=== PATIENT | female | born 1990 | race Hispanic/Latino ===

== ENCOUNTER 2023-08-21 11:13 | Emergency (ER) | payer OTHER ==
[2023-08-21] MEDS ORDERED: LIDOCAINE 1% 20 ML MDV ONE (11:39)
--- NOTE | 2023-08-21 12:42 | EDPHYS ---
Physician Documentation [facility] Name: Pattie Ahn Age: 32 yrs Sex: Female : 1990 Arrival Date: 08/21/2023 Time: 11:13 Bed 11 Private MD: ED Physician Guanakito Henson HPI: 08/20 12:38 This 32 yrs old Female presents to ER via Ambulatory with complaints of Finger rn laceration. 12:38 The patient has a laceration related to: cooking, occurred at home, and there are no rn complicating factors. Onset: The symptoms/episode began/occurred just prior to arrival. The patient has not experienced similar symptoms in the past. Patient reports cutting an onion and slipped and cut her finger accidentally with a knife. Minimal bleeding.. 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 - Infectious Disease History:: Denies. - Social history:: Smoking status: Patient denies any tobacco usage or history of. - Family history:: not pertinent. - Hospitalizations: : No recent hospitalization is reported. ROS: 12:38 MS/Extremity: Positive for laceration to the left fifth digit rn Exam: 12:38 MS/ Extremity: 3 cm superficial laceration to the tip of the left fifth finger, on pad rn of finger and extends to nail but does not involve the nail. No foreign body. Minimal venous bleeding noted. Vital Signs: 11:35 BP 135 / 102; Pulse 80; Resp 18 S; Temp 97.5(TE); Pulse Ox 96% on R/A; Weight 65.77 kg as6 (R); Height 5 ft. 1 in. (R); Pain 8/10; 12:56 BP 114 / 76; Pulse 68; Resp 16; Temp 97.8(TE); Pulse Ox 99% on R/A; Pain 0/10; tl4 11:35 Body Mass Index 27.40 (65.77 kg, 154.94 cm) as6 11:35 Pain Scale: Adult as6 12:56 Pain Scale: Adult tl4 Laceration: 12:38 Wound Repair of 3cm ( 1.2in ) subcutaneous laceration to Palmar aspect of the distal rn phalanx of the left little finger. Distal neuro/vascular/tendon intact. Anesthesia: Regional Block with 3 mls of 1% lidocaine. Wound prep: Extensive cleansing by me, Wound irrigation by me, Wound explored extensively. Skin closed with 6 4-0 Prolene using interrupted sutures and sterile technique. Dressed with 4x4's. Patient tolerated well. MDM: 11:21 Patient medically screened. rn 12:40 Differential diagnosis: superficial laceration. Data reviewed: vital signs, nurses rn notes, and as a result, I will discharge patient. Counseling: I had a detailed discussion with the patient and/or guardian regarding the historical points, exam findings, and any diagnostic results supporting the discharge/admit diagnosis, the need for outpatient follow up, to return to the emergency department if symptoms worsen or persist or if there are any questions or concerns that arise at home. Special discussion: I discussed with the patient/guardian in detail that at this point there is no indication for admission to the hospital. It is understood, however, that if the symptoms persist or worsen the patient needs to return immediately for re-evaluation. 08/20 11:39 Order name: Wound Care; Complete Time: 11:40 rn 08/20 11:39 Order name: Suture Tray at Bedside; Complete Time: 11:46 rn 08/20 11:39 Order name: Dressing - Wound; Complete Time: 11:40 rn 08/20 11:39 Order name: Gloves, Sterile; Complete Time: 11:46 rn 08/20 11:39 Order name: Prolene, Sutures; Complete Time: 11:46 rn 08/20 12:40 Order name: Splint - Finger; Complete Time: 12:56 rn Administered Medications: 12:23 Drug: Lidocaine Infiltration (1 %) 1 vials 20 ml Infiltration once; to bedside {Note: tl4 Administered by Dr Henson.} Volume: 20 ml; Route: Infiltration; Site: affected area; Disposition Summary: 08/21/23 12:41 Discharge Ordered Notes: Location: Home rn Problem: new rn Symptoms: have improved rn Condition: Stable rn Diagnosis - Laceration without foreign body of left little finger without damage to nail rn Followup: rn - With: Emergency Department - When: 14 days - Reason: Staple/Suture removal Discharge Instructions: - Discharge Summary Sheet rn - Laceration Care, Adult rn Forms: - Medication Reconciliation Form rn - Antibiotic furnace clerk - Prescription Opioid Use rn - Patient Portal Instructions rn - Leadership Thank You Letter rn Signatures: Guanakito Henson MD MD rn Slawson, Ashby RN RN as6 Patricio Valenzuela RN RN tl4
--- NOTE | 2023-08-21 12:42 | ER ---
Nurse's Notes [facility] Name: Pattie Ahn Age: 32 yrs Sex: Female : 1990 Arrival Date: 08/21/2023 Time: 11:13 Bed 11 Private MD: Diagnosis: Laceration without foreign body of left little finger without damage to nail Presentation: 08/20 11:35 Chief complaint: Patient states: pt cut her left pinky finger while cutting onions. as6 Coronavirus screen: At this time, the client does not indicate any symptoms associated with coronavirus-19. Ebola Screen: No symptoms or risks identified at this time. Initial Sepsis Screen: Does the patient meet any 2 criteria? No. Patient's initial sepsis screen is negative. Does the patient have a suspected source of infection? No. Patient's initial sepsis screen is negative. Risk Assessment: Do you want to hurt yourself or someone else? Patient reports no desire to harm self or others. Onset of symptoms was August 21, 2023. 11:35 Method Of Arrival: Ambulatory as6 11:35 Acuity: HAYDEE 4 as6 Triage Assessment: 12:00 General: Appears in no apparent distress. Behavior is cooperative, anxious. Pain: as6 Complains of pain in left hand. Injury Description: Laceration sustained to palmar aspect of middle phalanx of left little finger is clean, 0.5 to 2.5 cm long. 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 - Infectious Disease History:: Denies. - Social history:: Smoking status: Patient denies any tobacco usage or history of. - Family history:: not pertinent. - Hospitalizations: : No recent hospitalization is reported. Screenin:01 [facility] ED Fall Risk Assessment (Adult) History of falling in the last 3 months, as6 including since admission No falls in past 3 months (0 pts) Confusion or Disorientation No (0 pts) Intoxicated or Sedated No (0 pts) Impaired Gait No (0 pts) Mobility Assist Device Used No (0 pt) Altered Elimination No (0 pt) Score/Fall Risk Level 0 - 2 = Low Risk Oriented to surroundings, Maintained a safe environment, Educated pt \T\ family on fall prevention, incl call for assistance when getting out of bed, Assessed \T\ reinforced patient's understanding of fall precautions. Abuse screen: Denies threats or abuse. Denies injuries from another. Nutritional screening: No deficits noted. Tuberculosis screening: No symptoms or risk factors identified. Assessment: 12:24 General: Appears in no apparent distress. Behavior is calm, cooperative. Pain: tl4 Complains of pain in left hand. Neuro: Level of Consciousness is awake, alert, obeys commands, Oriented to person, place, time, situation, Moves all extremities. Full function Gait is steady, Speech is normal. Cardiovascular: Capillary refill < 3 seconds Patient's skin is warm and dry. Respiratory: Airway is patent Respiratory effort is even, unlabored, Respiratory pattern is regular, symmetrical, Breath sounds are clear bilaterally. GI: No signs and/or symptoms were reported involving the gastrointestinal system. : No signs and/or symptoms were reported regarding the genitourinary system. EENT: No signs and/or symptoms were reported regarding the EENT system. Derm: No signs and/or symptoms reported regarding the dermatologic system. Musculoskeletal: Circulation, motion, and sensation intact. Injury Description: Laceration sustained to palmar aspect of middle phalanx of left little finger. Vital Signs: 11:35 BP 135 / 102; Pulse 80; Resp 18 S; Temp 97.5(TE); Pulse Ox 96% on R/A; Weight 65.77 kg as6 (R); Height 5 ft. 1 in. (R); Pain 8/10; 12:56 BP 114 / 76; Pulse 68; Resp 16; Temp 97.8(TE); Pulse Ox 99% on R/A; Pain 0/10; tl4 11:35 Body Mass Index 27.40 (65.77 kg, 154.94 cm) as6 11:35 Pain Scale: Adult as6 12:56 Pain Scale: Adult tl4 ED Course: 11:14 Patient arrived in ED. mr 11:21 Guanakito Henson MD is Attending Physician. rn 11:35 Arm band placed on right wrist. as6 11:36 Triage completed. as6 12:01 Bed in low position. Call light in reach. as6 12:23 Patricio Valenzuela, RN is Primary Nurse. tl4 12:28 Assist provider with laceration repair on palmar aspect of middle phalanx of left tl4 little finger Set up tray. Performed by Guanakito Henson MD Patient tolerated well. 12:28 Patient did not have IV access during this emergency room visit. tl4 12:57 Aluminum finger splint applied to palmar aspect of middle phalanx of left little finger.tl4 12:59 Provided Education on: ED process. tl4 Administered Medications: 12:23 Drug: Lidocaine Infiltration (1 %) 1 vials 20 ml Infiltration once; to bedside {Note: tl4 Administered by Dr Henson.} Volume: 20 ml; Route: Infiltration; Site: affected area; Medication: 12:01 VIS not applicable for this client. as6 Outcome: 12:41 Discharge ordered by . rn 12:59 Discharged to home ambulatory, tl4 12:59 Condition: stable 12:59 Discharge instructions given to patient, Instructed on discharge instructions, follow up and referral plans. wound care, finger splint use Demonstrated understanding of instructions, follow-up care, wound care, splint care, 13:00 Patient left the ED. tl4 Signatures: Kemi Flores, Reg Reg mr Guanakito Henson MD MD rn Slawson, Ashby, RN RN as6 Patricio Valenzuela, BRUNA RN tl4
[2023-08-21 13:16] VITALS: BP 114/76; TEMP 97.8; O2SAT 99
== END 2023-08-21 13:00 | disposition home or self-care (01) ==
LOC: ER 11:13
PROC: 0HQGXZZ Repair Left Hand Skin, External Approach (ICD-10-PCS; principal; 2023-08-21)
DX: S61.217A Laceration without foreign body of left little finger without damage to nail, initial encounter (principal)
CPT/HCPCS: 12002; J2001